=== PATIENT | male | born 2000 | race Hispanic/Latino ===

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

== ENCOUNTER 2021-04-10 02:54 | Emergency (ER) | payer SELFPAY ==
[~2021-04-10] VITALS: Ht 175.3 cm; Wt 98.0 kg
[2021-04-10 02:56] VITALS: BP 129/76
== END 2021-04-10 05:09 | disposition left against medical advice (07) ==
LOC: EDH 02:54
DX: R50.9 Fever, unspecified (principal); R51.9 Headache, unspecified; Z53.21 Procedure and treatment not carried out due to patient leaving prior to being seen by health care provider

== ENCOUNTER 2021-09-21 23:05 | Emergency (ER) | payer OTHER ==
[~2021-09-21] VITALS: Ht 175.3 cm; Wt 94.3 kg
[2021-09-21 23:54] LABS: BASOPHILS % (AUTO) 0.3 % (0.0-5.0); EOSINOPHILS % (AUTO) 2.4 % (0.0-8.0); HEMATOCRIT 41.1 % (42-54); LYMPHOCYTES % (AUTO) 45.8 % (21.0-51.0); MEAN CORPUSCULAR HEMOGLOBIN 27.4 pg (27.0-33.0); MEAN CORPUSCULAR HGB CONC 33.1 g/dL (32.0-36.0); MEAN CORPUSCULAR VOLUME 82.9 fL (80-100); MONOCYTES % (AUTO) 9.6 % (3.0-13.0); NEUTROPHILS % (AUTO) 41.5 % (40.0-77.0); PLATELET COUNT (AUTO) 208 K/uL (130-400); RED BLOOD CELL COUNT(AUTO) 4.96 MIL/uL (4.50-6.20); WHITE BLOOD COUNT (AUTO) 9.1 K/uL (4.8-10.8)
[2021-09-21 23:56] LABS: APPEARANCE,URINE CLEAR (CLEAR); BILIRUBIN,URINE NEGATIVE (NEGATIVE); COLOR,URINE YELLOW (YELLOW); GLUCOSE, URINE (UA) NEGATIVE (NEGATIVE); KETONES,URINE NEGATIVE (NEGATIVE); LEUKOCYTE ESTERASE ,URINE NEGATIVE (NEGATIVE); NITRATE,URINE NEGATIVE (NEGATIVE); OCCULT BLOOD,URINE NEGATIVE (NEGATIVE); PH,URINE 5.5 (5.0-8.0); PROTEIN,URINE NEGATIVE (NEGATIVE); UROBILINOGEN,URINE 0.2 mg/dL (0.2-1.0)
[2021-09-22] MEDS ORDERED: FENTANYL CITRATE PF 50 MCG/1 ML 2ML VIAL IVP ONE
[2021-09-22 00:13] LABS: CREATININE 1.1 mg/dL (0.5-1.5); POTASSIUM 3.7 mmol/L (3.5-5.1)
[2021-09-22 00:17] LABS: ALBUMIN 3.9 g/dL (3.5-5.0); BILIRUBIN,TOTAL 0.4 mg/dL (0.2-1.0); TOTAL PROTEIN, SERUM 7.7 g/dL (6.0-8.3)
[2021-09-22 02:00] VITALS: BP 112/54
[2021-09-22] MEDS ORDERED: DICY20TA2 PO (02:01)
[2021-09-22] MEDS ORDERED: IBUP-2070 PO (02:01)
== END 2021-09-22 02:11 | disposition home or self-care (01) ==
LOC: EDH 23:05
DX: K80.20 Calculus of gallbladder without cholecystitis without obstruction (principal)
CPT/HCPCS: 36415; 76705; 80053; 81003; 82150; 85025; 96374; 99284; J3010

== ENCOUNTER 2022-05-03 08:16 | Emergency (ER) | payer OTHER ==
[~2022-05-03] VITALS: Ht 175.3 cm; Wt 90.7 kg
[~2022-05-03 08:16] MED LIST: DICY20TA2 PO; IBUP-2070 PO
[2022-05-03] MEDS ORDERED: FENTANYL CITRATE PF 50 MCG/1 ML 2ML VIAL ONE (08:40)
[2022-05-03] MEDS ORDERED: FENTANYL CITRATE PF 50 MCG/1 ML 2ML VIAL IVP SCH (09:00)
[2022-05-03 09:02] LABS: BASOPHILS % (AUTO) 0.4 % (0.0-5.0); LYMPHOCYTES % (AUTO) 37.1 % (21.0-51.0); MEAN CORPUSCULAR HEMOGLOBIN 26.8 pg (27.0-33.0); MEAN CORPUSCULAR HGB CONC 32.6 g/dL (32.0-36.0); MEAN CORPUSCULAR VOLUME 82.2 fL (80-100); MONOCYTES % (AUTO) 9.5 % (3.0-13.0); NEUTROPHILS % (AUTO) 48.6 % (40.0-77.0); PLATELET COUNT (AUTO) 208 K/uL (130-400); RED BLOOD CELL COUNT(AUTO) 5.11 MIL/uL (4.50-6.20)
[2022-05-03 09:17] LABS: ALBUMIN 3.9 g/dL (3.5-5.0); TOTAL PROTEIN, SERUM 7.5 g/dL (6.0-8.3)
[2022-05-03] MEDS ORDERED: KETOROLAC 30MG VIAL (30MG/ML) IVP SCH (10:00)
[2022-05-03] MEDS ORDERED: PROMETHAZINE HCL 25 MG/ML 1ML AMPULE IM SCH (10:00)
[2022-05-03] MEDS ORDERED: PANTOPRAZOLE 40 MG/VIAL IVP SCH (10:00)
[2022-05-03 10:32] LABS: APPEARANCE,URINE CLEAR (CLEAR); BILIRUBIN,URINE NEGATIVE (NEGATIVE); COLOR,URINE COLORLESS (YELLOW); GLUCOSE, URINE (UA) NEGATIVE (NEGATIVE); KETONES,URINE NEGATIVE (NEGATIVE); LEUKOCYTE ESTERASE ,URINE NEGATIVE Leu/uL (NEGATIVE); NITRATE,URINE NEGATIVE (NEGATIVE); OCCULT BLOOD,URINE NEGATIVE (NEGATIVE); PH,URINE 6.5 (5.0-8.0); PROTEIN,URINE NEGATIVE (NEGATIVE); UROBILINOGEN,URINE 0.2 mg/dL (0.2-1.0)
[2022-05-03 10:36] LABS: AMPHET/METH SCREEN,URINE NEGATIVE (NEGATIVE); BARBITURATE SCREEN, URINE NEGATIVE (NEGATIVE); BENZODIAZEPINES SCREEN,URINE NEGATIVE (NEGATIVE); CANNABINOID SCREEN,URINE NEGATIVE (NEGATIVE); COCAINE SCREEN,URINE NEGATIVE (NEGATIVE); OPIATE SCREEN,URINE NEGATIVE (NEGATIVE); PHENCYCLIDINE SCREEN,URINE NEGATIVE (NEGATIVE)
[2022-05-03] MEDS ORDERED: PROM25TA7 PO (13:11)
[2022-05-03] MEDS ORDERED: PANT40TA55 PO (13:11)
[2022-05-03 13:17] VITALS: BP 121/63
== END 2022-05-03 13:33 | disposition home or self-care (01) ==
LOC: EDH 08:16
DX: K80.20 Calculus of gallbladder without cholecystitis without obstruction (principal); R10.11 Right upper quadrant pain; R11.2 Nausea with vomiting, unspecified; F17.200 Nicotine dependence, unspecified, uncomplicated; Z20.822 Contact with and (suspected) exposure to COVID-19
CPT/HCPCS: 99285; 96374; 76705; 96375; 87635; 80053; 80305; 83690; 85025; 87804 ×2; 36415; 81003; 96372; C9803; J3010; J2550; J1885; C9113

== ENCOUNTER 2023-01-17 19:46 | Emergency (ER) | payer OTHER ==
[~2023-01-17 19:46] MED LIST changes: +PANT40TA55 PO; +PROM25TA7 PO
[2023-01-17 20:58] LABS: RAPID GROUP A STREP negative (NEGATIVE)
[2023-01-17 20:59] LABS: INFLUENZA TYPE A Negative For Type A (NEGATIVE)
[2023-01-17 21:00] LABS: COVID19 (SARS ANTIGEN RAPID) PRESUMPTIVE NEGATIVE (NEGATIVE)
[2023-01-17] MEDS ORDERED: ACETAMINOPHEN 500 MG TABLET PO ONE (21:00)
[2023-01-17 21:02] LABS: INFLUENZA TYPE B Positive For Type B (NEGATIVE)
[2023-01-17 21:44] VITALS: BP 126/69; PULSE 90; RESP 18
[2023-01-17 21:48] VITALS: TEMP 100.3
[2023-01-17] MEDS ORDERED: OSEL75 PO (22:00)
[2023-01-17 22:17] VITALS: O2SAT 98
== END 2023-01-17 22:17 | disposition home or self-care (01) ==
LOC: EDH 19:46
DX: J10.1 Influenza due to other identified influenza virus with other respiratory manifestations (principal); F17.200 Nicotine dependence, unspecified, uncomplicated; Z20.822 Contact with and (suspected) exposure to COVID-19; Z79.899 Other long term (current) drug therapy
CPT/HCPCS: 87426; 87804; 87880